=== PATIENT | male | born 1945 | race African-American/Black ===

== ENCOUNTER → 2017-03-07 | Day surgery (SDC) | payer OTHER ==
[~2017-03-07] MED LIST: AMLO5TAB2 PO; ASPI81TA23 PO; ATEN25TA PO; CELE200C PO; ENAL10TA PO; GLIM4TAB PO; GLIP5TAB8 PO; HYDR10TA16 PO; HYDR12.56 PO; KOMB2.5T PO; LIDOCAINE HCL 1% PF 30 ML VIAL EPIDURAL ONE; LYRI150C PO; MEPERIDINE HCL 25 MG/ML VIAL IV ONE; METF850T PO; MIDAZOLAM HCL 2 MG/2 ML VIAL IV ONE; NAPR250T4 PO; OMEP40CA2 PO; PROPOFOL 200 MG/20 ML AMP IV ONE; SIMV20TA PO; SODIUM CHLORIDE 0.9% 10 ML VIAL ONE; TRIAMCINOLONE ACETONIDE 40 MG/ML VIAL NERV BLOCK ONE; methylPREDNISolone ACETATE 80 MG/ML VIAL ONE
--- NOTE | 2017-03-07 10:25 | M6 ---
cc: JENNI MARTINEZ M.D. DATE 03/07/2017 DATE OF 1945 PROCEDURE Fluoroscopically guided L5-S1 interlaminar epidural steroid injection. History and physical was completed and signed. Consent was signed. Procedure site was marked. Medications were listed and reconciled. Pain score was recorded. Allergies were noted. Time out was taken. Fluoroscopy time was recorded where applicable. Sedation was administered or directed by Dr. Martinez. The patient was given oxygen. The patient was monitored by a registered nurse. Total procedure time was greater than 15 minutes. PROCEDURE NOTE IV was started. Blood pressure cuff, pulse oximeter and EKG were applied. The patient was placed in the prone position on a Geovani table, sedated with small amounts of propofol titrated to effect. Vital signs were monitored and remained stable throughout the procedure. The lumbar area was prepped with alcohol and 10% Betadine solution and draped with sterile drapes. Fluoroscopy was used to visualize the L5-S1 translaminar space. The skin was infiltrated with 1% Xylocaine using a 27-gauge needle. Then a 3-1/2-inch, 18-gauge Ruiz needle was advanced using fluoroscopic guidance and the fwlo-zf-naxjeyiwgm technique into the epidural space at L5-S1 slightly to the left of the midline. There was negative aspiration for blood or any other type of fluid and the patient was given 10 mL of 0.5% Xylocaine, 80 mg of Depo-Medrol. Following the procedure the patient was taken to the recovery room with stable vital signs neurologically intact. He will be evaluated immediately and with followup to determine if he has a subjective decrease in his usual pain and a corresponding objective increase in his functional capabilities. WMD ANNI Garcia/WILLIAM /10:03 AM /10:11 AM
== END | disposition home or self-care (01) ==
LOC: PHSDC 08:07
PROVIDERS: ATTEND Pain Medicine Interventional Pain Medicine
DX: M54.5 Low back pain (principal)
CPT/HCPCS: 62323; 99152; J1040; J2175; J2250; J3301

== ENCOUNTER → 2017-03-26 | Day surgery (SDC) | payer OTHER ==
[~2017-03-26] MED LIST changes: -AMLO5TAB2 PO; -GLIP5TAB8 PO; -KOMB2.5T PO; -LIDOCAINE HCL 1% PF 30 ML VIAL EPIDURAL ONE; +LIDOCAINE HCL 1% PF 30 ML VIAL INFIL ONE; -NAPR250T4 PO; -TRIAMCINOLONE ACETONIDE 40 MG/ML VIAL NERV BLOCK ONE
--- NOTE | 2017-03-26 08:46 | M6 ---
cc: JENNI MARTINEZ M.D. DATE 03/26/2017 DATE OF 1945 PROCEDURE Fluoroscopically guided L5-S1 translaminar epidural steroid injection. History and physical was completed and signed. Consent was signed. Procedure site was marked. Medications were listed and reconciled. Pain score was recorded. Allergies were noted. Time out was taken. Fluoroscopy time was recorded where applicable. Sedation was administered or directed by Dr. Martinez. The patient was given oxygen. The patient was monitored by a registered nurse. Total procedure time was greater than 15 minutes. PROCEDURE NOTE IV was started. Blood pressure cuff, pulse oximeter and EKG were applied. The patient was placed in the prone position on a Geovani table, sedated with small amounts of propofol titrated to effect. Vital signs were monitored and remained stable throughout the procedure. The lumbar area was prepped with alcohol and 10% Betadine solution, draped with sterile drapes. Fluoroscopy was used to visualize the L5-S1 interlaminar space. The skin was infiltrated with 1% Xylocaine using a 27-gauge needle. Then a 3-inch, 18-gauge Ruiz needle was advanced using fluoroscopic guidance and the rbgy-[id number]-nxfsuuevbp technique into the epidural space at L5-S1, slightly to the left of the midline. There was negative aspiration for blood or any other type of fluid and the patient was given 10 mL of 0.5% Xylocaine, 80 mg of Depo-Medrol. Following this the patient was taken to the recovery room with stable vital signs, neurologically intact. W. Jose Martinez MD WRMigdalia/WILLIAM /8:36 AM /8:38 AM
== END | disposition home or self-care (01) ==
LOC: PHSDC 06:49
PROVIDERS: ATTEND Pain Medicine Interventional Pain Medicine
DX: M54.5 Low back pain (principal)
CPT/HCPCS: 62323; 99152; J1040; J2175; J2250

== ENCOUNTER → 2017-05-29 | Day surgery (SDC) | payer OTHER ==
[~2017-05-29] MED LIST changes: +HYDR-3583 PO; +LIDOCAINE HCL 1% 30 ML VIAL NERV BLOCK ONE; -LIDOCAINE HCL 1% PF 30 ML VIAL INFIL ONE
--- NOTE | 2017-05-31 15:35 | M6 ---
cc: JENNI MARTINEZ M.D. DATE: 05/29/2017 DATE OF : 1945 PROCEDURE Fluoroscopically guided L5-S1 interlaminar epidural steroid injection. History and physical was completed and signed. Consent was signed. Procedure site was marked. Medications were listed and reconciled. Pain score was recorded. Allergies were noted. Time out was taken. Fluoroscopy time was recorded where applicable. Sedation was administered or directed by Dr. Martinez. The patient was given oxygen. The patient was monitored by a registered nurse. Total procedure time was greater than 15 minutes. IV was started, blood pressure cuff, pulse oximeter and EKG were applied. The patient was placed in the prone position on a Geovani table sedated with small amounts of propofol titrated to effect. Vital signs were monitored and remained stable throughout the procedure lumbar area was prepped with alcohol and 10% Betadine solution and draped with sterile drapes. Fluoroscopy was used to visualize the L5-S1 interlaminar space. The skin was infiltrated with 1% Xylocaine using a 27 gauge needle then a 3-1/2-inch 18-gauge Ruiz needle was advanced using fluoroscopic guidance and the mjbg-aw-mkjzzmasne technique into the epidural space at L5-S1 slightly to the left of the midline. There was negative aspiration for blood or any other type of fluid and the patient was given 10 mL of half percent Xylocaine 80 mg of Depo-Medrol. Following this the patient was taken to the recovery room with stable vital signs neurologically intact. W. MD ANNI Yoo/di /10:39 AM /3:25 PM
== END | disposition home or self-care (01) ==
LOC: PHSDC 09:01
PROVIDERS: ATTEND Pain Medicine Interventional Pain Medicine
DX: M54.5 Low back pain (principal)
CPT/HCPCS: 62323; 99152; J1040; J2175; J2250